=== PATIENT | female | born 1990 | race Caucasian/White ===

== ENCOUNTER 2017-02-17 21:47 | Emergency (ER) | payer OTHER ==
[2017-02-17 22:01] VITALS: BP 124/81; PULSE 72; TEMP 98.1; BMI 26.6
--- NOTE | 2017-02-17 23:27 | PDOC ---
History of Present Illness - General Chief Complaint: Ear Problem Stated Complaint: LT EAR PROBLEM Time Seen by Provider: 02/17/17 21:58 - History of Present Illness Initial Comments: This 26-year-old woman with a history of polycystic ovary syndrome and Mnire' s disease presents with discomfort in her left ear for the last several days. She states that it feels as if there is something in the canal. No known history of foreign body in the ear. She has not had pain with movement of the earlobe or discharge from the ear. No recent upper respiratory symptoms/sore throat or seasonal ALLERGIES. No recent fever/chills. Past History - Past Medical History Allergies/Adverse Reactions: Allergies Allergy/AdvReac Type Severity Reaction Status Date / Time No Known Allergies Allergy Unverified 12/16/12 11:07 Home Medications: Ambulatory Orders Norgestimate-Ethinyl Estradiol [Femynor 28 Tablet] 1 each PO DAILY 02/17/17 Disorders: Yes (PCOS) - Surgical History Appendectomy: Yes Cholecystectomy: Yes - Psycho/Social/Smoking Cessation Hx Anxiety: No Suicidal Ideation: No Smoking History: Never smoked Review of Systems - Review of Systems Able to Perform ROS?: Yes Comments:: 12 point review of systems is negative except for what is noted in the history of present illness *Physical Exam - Vital Signs Last Vital Signs Temp Pulse Resp BP Pulse Ox 98.1 F 72 18 124/81 98 02/17/17 21:59 02/17/17 21:59 02/17/17 21:59 02/17/17 21:59 02/17/17 21:59 - Physical Exam Comments: GENERAL: Adult female, alert and oriented 3, in no acute distress HEAD: Normal with no signs of trauma. EYES: PERRLA, EOMI, sclera anicteric, conjunctiva clear. ENT: Left ear small amount of cerumen in canal but TM visualized : Mildly retracted without erythema Right earmoderate amount of cerumen in canal/TM normal NECK: Normal range of motion, supple without lymphadenopathy, JVD, or masses. SKIN: Warm, Dry, normal turgor, no rashes or lesions noted. Medical Decision Making - Medical Decision Making 26-year-old woman presents with several day history of feeling of foreign body/ "blocked" feeling in left ear. No recent upper respiratory/throat infection or seasonal ALLERGIES. Exam reveals retracted TM on the left side. Although there is a small amount of cerumen in the canal, I do not feel this is significant enough for the patient to feel discomfort. More likely, the patient has left ear discomfort/blocked sensation secondary to fluid in the middle ear. Patient advised to use antihistamine/decongestant combination for the next few days. The patient has seen an ENT in the past for her Mnire's disease but since her insurance has changed, she needs to check which group takes her coverage. Meanwhile, she can also try to clear small amount of cerumen in the canal to see if her symptoms improve. She states that Debrox has been ineffective for her cerumen removal in the past but has used hydrogen peroxide containing solution ("swimmer's ear") in the past with at her results. *DC/Admit/Observation/Transfer Diagnosis at time of Disposition: Serous otitis media Qualifiers: Laterality: left Chronicity: acute Recurrence: not specified as recurrent Qualified Code(s): H65.02 - Acute serous otitis media, left ear - Discharge Dispostion Disposition: HOME Condition at time of disposition: Stable - Referrals Referrals: Joe Pryor MD [Primary Care Provider] - - Patient Instructions Printed Discharge Instructions: Eustachian Tube Dysfunction Additional Instructions: antihistamine/decongestant combination for the next few days can use hydrogen peroxide containing drops in ear for wax clearing followup with ENT doctor as discussed return to ER if pain is severe
== END 2017-02-17 23:32 | disposition home or self-care (01) ==
LOC: FER 21:47
DX: H65.02 Acute serous otitis media, left ear (principal); E28.2 Polycystic ovarian syndrome; H81.09 Meniere's disease, unspecified ear
CPT/HCPCS: 99281-25

== ENCOUNTER 2017-07-07 17:22 | Emergency (ER) | payer OTHER ==
[2017-07-07 17:38] VITALS: BP 137/85; PULSE 73; TEMP 98.4; BMI 26.6
[2017-07-07] MEDS ORDERED: DIPHTH,PERTUSS(ACELL),TET 0.5 ML DISP.SYRIN IM ONE (18:00)
--- NOTE | 2017-07-07 18:02 | PDOC ---
History of Present Illness - General History Source: Patient Exam Limitations: No Limitations - History of Present Illness Initial Comments: 07/07/17 18:04 26 y/o F with no PMHx presents to the ED with a right hand laceration. Patient reports she was breaking up a dog fight between her and her neighbors dogs and she got bit while pulling the dogs apart. She states that she immediately went inside and washed out the laceration and came to the ED. Patient reports both dogs have their rabies shots. Patient is right hand dominant. Denies any other complaints. <Macey Robles - Last Filed: 07/07/17 18:12> - General History Source: Patient Exam Limitations: No Limitations <Julee Carlos - Last Filed: 07/08/17 10:21> - General Chief Complaint: Bite Stated Complaint: RT HAND DOG BITE Time Seen by Provider: 07/07/17 17:23 Past History <Macey Robles - Last Filed: 07/07/17 18:12> - Past Medical History Disorders: Yes (PCOS) - Surgical History Appendectomy: Yes Cholecystectomy: Yes - Suicide/Smoking/Psychosocial Hx Smoking History: Never smoked Have you smoked in the past 12 months: No Information on smoking cessation initiated: No Hx Alcohol Use: No Drug/Substance Use Hx: No Substance Use Type: None <Julee Carlos - Last Filed: 07/08/17 10:21> - Past Medical History Allergies/Adverse Reactions: Allergies Allergy/AdvReac Type Severity Reaction Status Date / Time No Known Allergies Allergy Verified 07/07/17 17:23 Home Medications: Ambulatory Orders Norgestimate-Ethinyl Estradiol [Femynor 28 Tablet] 1 each PO DAILY 02/17/17 Amoxicillin/Potassium Clav [Augmentin 875-125 Tablet] 1 each PO BID #14 tablet 07/07/17 Review of Systems - Review of Systems Able to Perform ROS?: Yes Comments:: 07/07/17 18:05 GENERAL/CONSTITUTIONAL: No: fever, chills, weakness, loss of appetite. MUSCULOSKELETAL: No: back pain, neck pain, joint pain, muscle swelling or pain SKIN AND BREASTS: (+) right hand laceration. No: lesions, pallor, rash or easy bruising. <Macey Robles - Last Filed: 07/07/17 18:12> *Physical Exam - Vital Signs Last Vital Signs Temp Pulse Resp BP Pulse Ox 98.4 F 73 20 137/85 99 07/07/17 17:22 07/07/17 17:22 07/07/17 17:22 07/07/17 17:22 07/07/17 17:22 - Physical Exam Comments: 07/07/17 18:05 GENERAL: The patient is in no acute distress. EXTREMITIES: Normal range of motion, no edema. No clubbing or cyanosis. No erythema, or tenderness. NEUROLOGICAL: Cranial nerves II through XII grossly intact. Normal speech. No focal neurological deficits. MUSCULOSKELETAL: Back non-tender to palpation, no CVA tenderness SKIN: 1 cm linear laceration, clean, no active bleeding. Warm, Dry, normal turgor, no rashes or lesions noted. <Macey Robles - Last Filed: 07/07/17 18:12> - Vital Signs Last Vital Signs Temp Pulse Resp BP Pulse Ox 98.4 F 73 20 137/85 99 07/07/17 17:22 07/07/17 17:22 07/07/17 17:22 07/07/17 17:22 07/07/17 17:22 <Julee Carlos - Last Filed: 07/08/17 10:21> Medical Decision Making - Medical Decision Making 07/07/17 17:57 This patient is an otherwise healthy [id number] 26-year-old female presenting to emergency Department with hand laceration from a dog bite. Patient states she was breaking up a fight between 2 dogs, and was lacerated between the first and second digits. She washed the area right away. Both dogs On examination: 1 cm laceration noted between the thumb and the 2nd digit No active bleeding R/M/U motor and sensation in tact Pt seen in ER by Dr Huff He recommends AGAINST suturing This is a high risk injury If closed, this has a high risk of becoming infected Pt unsure of her tetanus status Will discharge to home Will dress wound Will ask pt to return for signs of infection <Julee Carlos - Last Filed: 07/08/17 10:21> *DC/Admit/Observation/Transfer - Attestations Scribe Attestion: 07/07/17 18:05 Documentation prepared by Macey Robles, acting as medical assistant secretary for Julee Carlos MD. <Macey Robles - Last Filed: 07/07/17 18:12> - Discharge Dispostion Admit: No <Julee Carlos - Last Filed: 07/08/17 10:21> Diagnosis at time of Disposition: Dog bite Qualifiers: Encounter type: initial encounter Qualified Code(s): W54.0XXA - Bitten by dog, initial encounter - Discharge Dispostion Disposition: HOME Condition at time of disposition: Stable - Prescriptions Prescriptions: Amoxicillin/Potassium Clav [Augmentin 875-125 Tablet] 1 each PO BID #14 tablet - Referrals Referrals: Andrea Huff MD [Staff Physician] - - Patient Instructions Printed Discharge Instructions: DI for Animal Bites Additional Instructions: Thank you for coming in to the ER today I am sorry about your injury Please keep wound covered It will slowly heal itself over time Please take antibiotics as prescribed You should not get your hand soaking wet until the skin closes Please monitor yourself for fevers, chills, swelling, drainage - Post Discharge Activity Forms/Work/School Notes: Back to Work
== END 2017-07-07 18:18 | disposition home or self-care (01) ==
LOC: FER 17:22
PROC: 3E0234Z Introduction of Serum, Toxoid and Vaccine into Muscle, Percutaneous Approach (ICD-10-PCS; principal; 2017-07-07)
DX: S61.451A Open bite of right hand, initial encounter (principal); E28.2 Polycystic ovarian syndrome; W54.0XXA Bitten by dog, initial encounter; Y93.89 Activity, other specified; Y92.9 Unspecified place or not applicable
CPT/HCPCS: 90715; 99282-25